=== PATIENT | female | born 1985 | race Caucasian/White ===

== ENCOUNTER 2017-11-27 20:20 | Emergency (ER) | payer BC, OTHER ==
--- NOTE | 2017-11-27 20:26 | PDOC ---
History of Present Illness - General History Source: Patient Exam Limitations: No Limitations - History of Present Illness Initial Comments: 11/27/17 20:43 The patient is a 32 year old female, with a significant past medical history of IBS, who presents to the emergency department with abdominal pain, nausea, and vomiting since this morning. The patient reports her abdominal pain is localized epigastrically and radiates to her left abdomen and left flank. Patient reports her pain is exacerbated with vomiting or with movement, and alleviated when lying on her right side in position. She reports associated nausea, bilious vomiting, diarrhea, dry heaving, diaphoresis, and chills. She denies any associated fever, rectal bleeding, cough, headache, or dizziness. Patient reports she has been unable to tolerate any solids or fluids p.o. She reports mild shortness of breath, but denies any chest pain, palpitations, or lower extremity edema. She denies any dysuria, hematuria, frequency, or urgency. She denies any history of kidney stones. She denies any recent travel or sickk contacts. PAST MEDICAL HISTORY: IBS PAST SURGICAL HISTORY: No significant history FAMILY HISTORY: No pertinent history SOCIAL HISTORY: Pt lives with family and is employed. Non smoker. No ETOH or recreational drug use. MEDICATIONS: reviewed ALLERGIES: As per nursing notes General: Yes chills. No fevers, no weakness, no weight loss HEENT: No change in vision. No sore throat,. No ear pain CardioVascular: No chest pain or shortness of breath Respiratory:No cough, or wheezing. Gastrointestinal: Yes abdominal pain, nausea, vomiting, diarrhea. No constipation. No rectal bleeding Genitourinary: Yes flank pain. No dysuria, hematuria, or frequency Musculoskeletal: No joint or muscle pain or swelling Neurologic: No headache, vertigo, dizziness or loss of consciousness Psychiatric: No depression Skin: No rashes or easy bruising Endocrine: Yes decreased appetite. No abnormal weight change Allergic: no skin or latex allergy All other systems reviewed and normal General: Well-nourished well-developed individual, Moderate distress HEENT: Throat: Dry mucous membranes. Normal, tonsils normal, no erythema or exudate Neck: Supple, no meningeal signs, no lymphadenopathy Eyes::Pupils equal reactive and round, extraocular motion intact Chest: Nontender to palpation Cardiac: S1-S2 normal, regular rate and rhythm, no murmurs rubs or gallops Respiratory: Lungs clear to auscultation bilateral Abdomen: Soft, nondistended, Mildly tender diffusely to deep palpation. Bowel sounds present and normal. No guarding or rebound. Extremities: Warm, dry, no cyanosis, clubbing, or edema Skin: No rashes Neuro: Alert and oriented x3, nonfocal exam, grossly intact, normal gait Psych: Normal mood and affect <Jeanne Beckham - Last Filed: 11/27/17 21:50> - General History Source: Patient Exam Limitations: No Limitations - History of Present Illness Initial Comments: Medical decision-making: This is a 32-year-old female who comes in complaining of nausea vomiting and diarrhea and abdominal pain. Patient on arrival is relatively uncomfortable. Patient also has a flank component to her pain. Will obtain labs including CBC, comp, urinalysis and urine test We'll follow with CT abdomen and pelvis as there is a flank component and to rule out renal colic Hydrate patient with 2 L of normal saline and give her antiemetics and pain medication Reevaluation at 21:30 Patient still is complaining of some nausea I will give her some Reglan as the Zofran does not seem to be working Reevaluation 20:30 Patient has now received 2 L of fluids, nausea has resolved with the Reglan patient looks hydrated feels much better and wants to go home. A reexamination of her abdomen her abdomen is now soft, nontender and with normal bowel sounds 11/27/17 22:42 Labs are pretty much unremarkable CBC does show a moderate amount of dehydration as well as a urine with 4+ ketones CT scan shows no renal stones however does show evidence of acute enteritis. Assessment and plan: This is a 32-year-old female comes in complaining of nausea vomiting diarrhea abdominal pain and cramping. Patient had a workup that was essentially negative for everything but a viral etiology. A prescription for Reglan was sent patient's pharmacy for antiemetic. Patient given vomiting discharge instructions including the Quiana diet patient discharged home with her parents <Nevin Guzman I - Last Filed: 11/27/17 22:53> - General Chief Complaint: Pain, Acute Stated Complaint: ABD PAIN/N/V/D Time Seen by Provider: 11/27/17 20:25 Past History <Jeanne Beckham - Last Filed: 11/27/17 21:50> - Past Medical History GI Disorders: Yes (IBS) - Immunization History Immunization Up to Date: Yes - Suicide/Smoking/Psychosocial Hx Smoking History: Unknown if ever smoked Have you smoked in the past 12 months: No Hx Alcohol Use: No Substance Use Type: None <Nevin Guzman I - Last Filed: 11/27/17 22:53> - Past Medical History Allergies/Adverse Reactions: Allergies Allergy/AdvReac Type Severity Reaction Status Date / Time Penicillins Allergy Verified 03/14/15 08:30 Home Medications: Ambulatory Orders Metoclopramide HCl [Reglan] 10 mg PO TID #12 tablet 11/27/17 *Physical Exam - Vital Signs Last Vital Signs Temp Pulse Resp BP Pulse Ox 97.7 F 80 18 144/79 100 11/27/17 20:26 11/27/17 20:26 11/27/17 20:26 11/27/17 20:26 11/27/17 20:26 <Jeanne Beckham - Last Filed: 11/27/17 21:50> ED Treatment Course - LABORATORY CBC & Chemistry Diagram: 11/27/17 20:51 11/27/17 20:51 <Jeanne Beckham - Last Filed: 11/27/17 21:50> - LABORATORY CBC & Chemistry Diagram: 11/27/17 20:51 11/27/17 20:51 <Nevin Guzman I - Last Filed: 11/27/17 22:53> *DC/Admit/Observation/Transfer - Attestations Scribe Attestion: 11/27/17 20:45 Documentation prepared by Jeanne Beckham, acting as medical delivery technician for Nevin Guzman MD. <Jeanne Beckham - Last Filed: 11/27/17 21:50> - Discharge Dispostion Admit: No <Nevin Guzman I - Last Filed: 11/27/17 22:53> Diagnosis at time of Disposition: Acute gastroenteritis - Discharge Dispostion Disposition: HOME Condition at time of disposition: Stable - Prescriptions Prescriptions: Metoclopramide HCl [Reglan] 10 mg PO TID #12 tablet - Referrals Referrals: Malissa Pena [Primary Care Provider] - - Patient Instructions Additional Instructions: Clear liquids only for the next 6 hours.. After that if you have had no further vomiting you may have bananas, rice, applesauce, or toast. If no further vomiting for another 8 hours you may have regular food. If you vomit again then nothing to eat or drink for 2 hours. Take a Reglan 1 tablet as often as every 6-8 hours. As needed for vomiting then start back with the clear liquids. Return to the emergency department immediately with ANY new, persistent or worsening symptoms. You MUST call and follow up with your doctor tomorrow if not better. Please make sure your doctor reviews the results of your emergency evaluation. - Post Discharge Activity
[2017-11-27 20:28] VITALS: BP 144/79; PULSE 80; TEMP 97.7; BMI 27.4
[2017-11-27] MEDS ORDERED: ONDANSETRON 4 MG/2 ML VIAL IVPB ONE (20:36)
[2017-11-27] MEDS ORDERED: SODIUM CHLORIDE 1,000 ML IV ONE (20:36)
[2017-11-27] MEDS ORDERED: KETOROLAC TROMETHAMINE 30 MG/1 ML VIAL IVPUSH ONE (20:36)
[2017-11-27] MEDS ORDERED: KETOROLAC TROMETHAMINE 30 MG/1 ML VIAL ONE (20:37)
[2017-11-27] MEDS ORDERED: ONDANSETRON 4 MG/2 ML VIAL ONE (20:38)
[2017-11-27 20:57] LABS: URINE BILIRUBIN 1+ (NEGATIVE); URINE GLUCOSE (UA) Negative (NEGATIVE); URINE KETONE 4+ (NEGATIVE); URINE LEUK ESTERASE Negative (NEGATIVE); URINE NITRITE Negative (NEGATIVE); URINE UROBILINOGEN 0.2 (0.2-1.0)
[2017-11-27 20:58] LABS: URINE APPEARANCE HAZY; URINE BLOOD Trace-intact (NEGATIVE); URINE COLOR YELLOW; URINE PROTEIN 1+ (NEGATIVE)
[2017-11-27 21:12] LABS: BASO % 0.9 % (0-2.0); EOS % 0.9 % (0-4.5); MCH 29.6 pg (25.7-33.7); MCHC 33.5 g/dl (32.0-36.0); MEAN CELL VOLUME 88.3 fl (80-96); MEAN PLT VOLUME 8.9 fl (7.5-11.1); NEUT % 89.9 % (42.8-82.8); PLATELET COUNT 316 K/MM3 (134-434); WHITE BLOOD COUNT 9.6 K/mm3 (4.0-10.8)
[2017-11-27 21:19] LABS: URINE BACTERIA FEW /hpf (NEGATIVE)
[2017-11-27 21:25] LABS: ALBUMIN 4.4 g/dl (3.5-5.0); ALK PHOS 44 U/L (32-92); ANION GAP 11 (8-16); BILIRUBIN,TOTAL 1.2 mg/dl (0.2-1.0); CO2 24 mmol/L (22-28); CREATININE 0.6 mg/dl (0.6-1.3); GLUCOSE,RANDOM 94 mg/dl (74-106); SGOT/AST 29 U/L (10-42); SGPT/ALT 26 U/L (10-40)
[2017-11-27] MEDS ORDERED: morphine CARPU-JECT 4 MG/1 ML DISP.SYRIN IVPUSH ONE (21:29)
[2017-11-27] MEDS ORDERED: METOCLOPRAMIDE HCL INJECTION 10 MG/2 ML VIAL IVPUSH ONE (21:29)
[2017-11-27] MEDS ORDERED: morphine SULFATE 4 MG/ML VIAL ONE (21:31)
[2017-11-27] MEDS ORDERED: HYOSCYAMINE SULFATE 0.125 MG *ODT PO ONE (21:36)
[2017-11-27] MEDS ORDERED: SULFAMETHOXAZOLE/TRIMETHOPRIM 800MG/160MG D.S. TABLET PO ONE (21:39)
[2017-11-27] MEDS ORDERED: HYOSCYAMINE SULFATE 0.125 MG *ODT ONE (21:43)
== END 2017-11-27 22:56 | disposition home or self-care (01) ==
LOC: FER 20:20
PROC: 3E033GC Introduction of Other Therapeutic Substance into Peripheral Vein, Percutaneous Approach (ICD-10-PCS; principal; 2017-11-27)
PROC: 3E0333Z Introduction of Anti-inflammatory into Peripheral Vein, Percutaneous Approach (ICD-10-PCS; 2017-11-27)
PROC: 3E033NZ Introduction of Analgesics, Hypnotics, Sedatives into Peripheral Vein, Percutaneous Approach (ICD-10-PCS; 2017-11-27)
PROC: 3E0337Z Introduction of Electrolytic and Water Balance Substance into Peripheral Vein, Percutaneous Approach (ICD-10-PCS; 2017-11-27)
DX: R11.2 Nausea with vomiting, unspecified (principal); K52.9 Noninfective gastroenteritis and colitis, unspecified
CPT/HCPCS: 36415; 74176-TC; 80053; 81003; 81015; 83690; 84703; 85025; 87086; 99283-25

== ENCOUNTER 2018-04-08 20:29 | Emergency (ER) | payer BC, OTHER ==
--- NOTE | 2018-04-08 20:42 | PDOC ---
History of Present Illness - General History Source: Patient Exam Limitations: No Limitations - History of Present Illness Initial Comments: 04/08/18 21:15 The patient is a 32 year old female with a significant PMH of IBS who presents to the emergency department with chest pain for 5 days. The patient reports that she went to Urgent care earlier today where she was diagnosed positive for the flu. She reports that this is her second episode of the flu this season. The patient states that she began to experience her chest pain after a long run 5 days ago. The patient states that she has experienced associated shortness of breath, fever and productive cough. She reports that her chest pain is worsened with her cough. The patient denies any headache or dizziness. She denies any chills, nausea, vomiting, diarrhea or constipation. She denies any urinary symptoms. The patient denies any other complaints PAST MEDICAL HISTORY: IBS PAST SURGICAL HISTORY: no significant history FAMILY HISTORY: no pertinent history SOCIAL HISTORY: Pt lives with family and is employed. MEDICATIONS: reviewed ALLERGIES: As per nursing notes General:(+) fever. No chills, no weakness, no weight loss HEENT: No change in vision. No sore throat,. No ear pain CardioVascular: (+) chest pain with associated shortness of breath Respiratory:(+) cough. No wheezing. Gastrointestinal: no nausea, vomiting, diarrhea or constipation, No rectal bleeding Genitourinary: No dysuria, hematuria, or frequency Musculoskeletal: No joint or muscle pain or swelling Neurologic: No headache, vertigo, dizziness or loss of consciousness Psychiatric: nor depression Skin: No rashes or easy bruising Endocrine: no increased thirst or abnormal weight change Allergic: no skin or latex allergy All other systems reviewed and normal General: Well-nourished well-developed individual, no acute distress HEENT: Throat: Normal, tonsils normal, no erythema or exudate Neck: Supple, no meningeal signs, no lymphadenopathy Eyes::Pupils equal reactive and round, extraocular motion intact Chest: Nontender to palpation Cardiac: S1-S2 normal, regular rate and rhythm, no murmurs rubs or gallops Respiratory: Lungs clear to auscultation bilateral Extremities: Warm, dry, no cyanosis, clubbing, or edema Skin: No rashes Neuro: Alert and oriented x3, nonfocal exam, grossly intact, normal gait Psych: Normal mood and affect <Saundra Lazcano - Last Filed: 04/08/18 21:15> - General History Source: Patient Exam Limitations: No Limitations - History of Present Illness Initial Comments: 04/08/18 20:47 A portion of this note was documented by scribe services under my direction. I have reviewed the details of the note, within reason, and agree with the documentation. The case summary and management plan written by me. Assessment and plan: This is a 32-year-old female with cough and congestion secondary to influenza. Patient was at an urgent care center today had an influenza test done that was positive. Patient is complaining of pleuritic type chest pain and coughing up thick greenish yellow phlegm. Patient says pain is associated with some mild shortness of breath. Will obtain chest x-ray and give patient azithromycin there is any evidence of bronchitis or pneumonia. 04/08/18 21:25 Chest x-ray shows bronchitis as reviewed by me We'll start patient on a Z-Stevenson Patient discharged home <Nevin Guzman I - Last Filed: 04/08/18 21:29> - General Chief Complaint: Chest Pain Stated Complaint: CHEST PAIN Time Seen by Provider: 04/08/18 20:35 Past History <Saundra Lazcano - Last Filed: 04/08/18 21:15> - Past Medical History COPD: No GI Disorders: Yes (IBS) - Immunization History Immunization Up to Date: Yes - Suicide/Smoking/Psychosocial Hx Smoking History: Unknown if ever smoked Have you smoked in the past 12 months: No Number of Cigarettes Smoked Daily: 0 Information on smoking cessation initiated: No Hx Alcohol Use: No Drug/Substance Use Hx: No Substance Use Type: None <Nevin Guzman I - Last Filed: 04/08/18 21:29> - Past Medical History Allergies/Adverse Reactions: Allergies Allergy/AdvReac Type Severity Reaction Status Date / Time Penicillins Allergy Verified 03/14/15 08:30 Home Medications: Ambulatory Orders Metoclopramide HCl [Reglan] 10 mg PO TID #12 tablet 11/27/17 Azithromycin [Zithromax 250mg Tablets -] 250 mg PO DAILY #4 tab 04/08/18 Benzonatate [Tessalon Pearls -] 100 mg PO TID #21 capsule 04/08/18 *Physical Exam - Vital Signs Last Vital Signs Temp Pulse Resp BP Pulse Ox 98.3 F 70 14 119/90 100 04/08/18 20:32 04/08/18 20:32 04/08/18 20:32 04/08/18 20:32 04/08/18 20:32 <Saundra Lazcano - Last Filed: 04/08/18 21:15> - Vital Signs Last Vital Signs Temp Pulse Resp BP Pulse Ox 98.3 F 70 14 119/90 100 04/08/18 20:32 04/08/18 20:32 04/08/18 20:32 04/08/18 20:32 04/08/18 20:32 <Nevin Guzman I - Last Filed: 04/08/18 21:29> *DC/Admit/Observation/Transfer - Attestations Scribe Attestion: 04/08/18 21:16 Documentation prepared by Saundra Lazcano, acting as medical research scientist for Nevin Guzman MD. <Saundra Lazcano - Last Filed: 04/08/18 21:15> - Discharge Dispostion Decision to Admit order: No <Nevin Guzman I - Last Filed: 04/08/18 21:29> Diagnosis at time of Disposition: Bronchitis - Discharge Dispostion Disposition: HOME Condition at time of disposition: Good - Patient Instructions Printed Discharge Instructions: Acute Bronchitis Additional Instructions: Your chest x-ray shows bronchitis. I gave you a dose of azithromycin here in the emergency room and send a prescription to your pharmacy will need to take the next dose tomorrow evening. He will take a total of 4 more doses. I've also send a prescription to her pharmacy for Jose Luis Perles for the cough that plus the antibiotics should help. For the discomfort in your chest take Tylenol or Motrin. Return to the emergency department immediately with ANY new, persistent or worsening symptoms. Continue any medications as previously prescribed by your physician. You should follow up with your primary doctor as soon as possible regarding today's emergency department visit. . Please make sure your doctor reviews the results of your emergency evaluation. Thank you for coming to the Emergency Department today for your care. It was a pleasure to see you today. Please note that your evaluation is INCOMPLETE until you follow-up with your doctor.
[2018-04-08 20:43] VITALS: BP 119/90; PULSE 70; TEMP 98.3; BMI 28.3
[2018-04-08] MEDS ORDERED: AZITHROMYCIN 250 MG TABLET PO ONE (21:28)
[2018-04-08] MEDS ORDERED: AZITHROMYCIN 250 MG TABLET ONE (21:36)
== END 2018-04-08 21:38 | disposition home or self-care (01) ==
LOC: FER 20:29
DX: J20.9 Acute bronchitis, unspecified (principal); K58.9 Irritable bowel syndrome, unspecified; Z88.0 Allergy status to penicillin
CPT/HCPCS: 71046-TC-FY; 99283-25

== ENCOUNTER 2019-02-05 21:30 | Emergency (ER) | payer OTHER ==
[2019-02-06 00:34] VITALS: BP 147/93; PULSE 68; TEMP 98.2; BMI 29.9
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
== END 2019-02-05 22:20 | disposition home or self-care (01) ==
LOC: FER 21:30
DX: T23.002A Burn of unspecified degree of left hand, unspecified site, initial encounter (principal); X08.8XXA Exposure to other specified smoke, fire and flames, initial encounter; Y93.9 Activity, unspecified; Y92.9 Unspecified place or not applicable
CPT/HCPCS: 99282-25

== ENCOUNTER 2019-08-27 04:23 | Emergency (ER) | payer SELFPAY ==
[2019-08-27 04:37] VITALS: BP 132/84; PULSE 73; TEMP 98.2; BMI 29.9
[2019-08-27] MEDS ORDERED: ALBUTEROL SO4 2.5/IPRATROPIUM 0.5 INH SOL 3 ML VIAL.NEB. NEB ONE ×2 (04:43)
--- NOTE | 2019-08-27 04:45 | PDOC ---
History of Present Illness - General Chief Complaint: Respiratory Stated Complaint: COUGH/FEVER Time Seen by Provider: 08/27/19 04:39 History Source: Patient Exam Limitations: No Limitations - History of Present Illness Initial Comments: 08/27/19 04:43 This is a 33-year-old female who comes in complaining of a cough and fever 1 week. Patient said the fever is been intermittent. Patient said the cough is getting worse. Patient said she is having difficulty laying down and sleeping because of the cough. Patient otherwise is healthy and denies any other medical problems. Allergies: as per nursing notes Past Medical History: none Social history: Lives with family. No smoking. No alcohol. No illicit drugs. Surgical history: None General: No fevers or chills, no weakness, no weight loss HEENT: No change in vision. No sore throat,. No ear pain CardioVascular: no chest discomfort. No shortness of breath Respiratory:+ cough, no wheezing. Gastrointestinal: no nausea, vomiting, diarrhea or constipation, No rectal bleeding Genitourinary: No dysuria, hematuria, or frequency Musculoskeletal: No joint or muscle pain or swelling Neurologic: No headache, vertigo, dizziness or loss of consciousness Psychiatric: nor depression Skin: No rashes or easy bruising Endocrine: no increased thirst or abnormal weight change Allergic: no skin or latex allergy All other systems reviewed and normal Exam: General: Well-nourished well-developed individual, no acute distress HEENT: Throat: Normal, tonsils normal, no erythema or exudate Neck: Supple, no meningeal signs, no lymphadenopathy Eyes::Pupils equal reactive and round, extraocular motion intact Chest: Nontender to palpation Cardiac: S1-S2 normal, regular rate and rhythm, no murmurs rubs or gallops Respiratory: Lungs clear to auscultation bilateral Abdomen: Soft, nondistended, normal bowel sounds, there is no tenderness on palpation diffusely Extremities: Warm, dry, no cyanosis, clubbing, or edema Skin: No rashes Neuro: Alert and oriented x3, CN II - XII intact, nonfocal exam with normal strength, normal sensation, normal reflexes, normal gait, Psych: Normal mood and affect 08/27/19 05:16 Past History - Past Medical History Allergies/Adverse Reactions: Allergies Allergy/AdvReac Type Severity Reaction Status Date / Time Penicillins Allergy Verified 04/14/15 08:30 Home Medications: Ambulatory Orders Azithromycin 250 mg PO DAILY #4 tablet 08/27/19 COPD: No GI Disorders: Yes (IBS) - Immunization History Immunization Up to Date: Yes - Psycho Social/Smoking Cessation Hx Smoking History: Never smoked Have you smoked in the past 12 months: No Number of Cigarettes Smoked Daily: 0 Hx Alcohol Use: No Drug/Substance Use Hx: No Substance Use Type: None *Physical Exam - Vital Signs Last Vital Signs Temp Pulse Resp BP Pulse Ox 98.2 F 73 18 132/84 99 08/27/19 04:32 08/27/19 04:32 08/27/19 04:32 08/27/19 04:32 08/27/19 04:32 Discharge - Discharge Information Problems reviewed: Yes Clinical Impression/Diagnosis: Pneumonia Condition: Stable Disposition: HOME - Admission No - Follow up/Referral Referrals: Malissa Pena [Primary Care Provider] - - Patient Discharge Instructions Additional Instructions: The chest x-ray shows you have some pneumonia. I started you on antibiotics however you need to take the antibiotics once a day for the next 4 days. Return to the emergency department immediately with ANY new, persistent or worsening symptoms. Continue any medications as previously prescribed by your physician. You should follow up with your primary doctor as soon as possible regarding today's emergency department visit. . Please make sure your doctor reviews the results of your emergency evaluation. Thank you for coming to the Emergency Department today for your care. It was a pleasure to see you today. Please note that your evaluation is INCOMPLETE until you follow-up with your doctor. - Post Discharge Activity
[2019-08-27] MEDS ORDERED: AZITHROMYCIN 500 MG TABLET PO ONE (05:17)
[2019-08-27] MEDS ORDERED: AZITHROMYCIN 250 MG TABLET ONE (05:19)
== END 2019-08-27 05:23 | disposition home or self-care (01) ==
LOC: FER 04:23
PROC: 3E0F7GC Introduction of Other Therapeutic Substance into Respiratory Tract, Via Natural or Artificial Opening (ICD-10-PCS; principal; 2019-08-27)
DX: J18.9 Pneumonia, unspecified organism (principal); Z88.0 Allergy status to penicillin; K58.9 Irritable bowel syndrome, unspecified
CPT/HCPCS: 71046-TC-FY; 99281-25

== ENCOUNTER 2022-12-02 17:25 | Emergency (ER) | payer OTHER ==
[2022-12-02 17:34] VITALS: BP 111/84; PULSE 75; RESP 20; TEMP 98; BMI 24.1
[2022-12-02] MEDS ORDERED: FAMOTIDINE 20 MG TABLET PO ONE (17:47)
[2022-12-02] MEDS ORDERED: MAG HYDROX/AL HYDROX/SIMETH 30 ML UNIT-DOSE CUP PO ONE (17:47)
[2022-12-02] MEDS ORDERED: MAG HYDROX/AL HYDROX/SIMETH 30 ML UNIT-DOSE CUP ONE (17:49)
[2022-12-02] MEDS ORDERED: FAMOTIDINE 20 MG TABLET ONE (17:49)
[2022-12-02 18:20] LABS: HEMATOCRIT 40.3 % (32.4-45.2); HEMOGLOBIN 14.1 G/dL (10.7-15.3); MCH 30.2 pg (25.7-33.7); MCHC 34.9 g/dl (32.0-36.0); MEAN CELL VOLUME 86.4 fl (80-96); MEAN PLT VOLUME 7.6 fl (7.5-11.1); PLATELET COUNT 372.7 10^3/uL (134-434); RBC 4.66 10^6/uL (3.60-5.2); RDW 13.4 % (11.6-15.6); WHITE BLOOD COUNT 4.8 10^3/uL (4.0-10.8)
[2022-12-02 18:36] LABS: ALBUMIN 4.2 g/dl (3.4-5.0); BILIRUBIN,TOTAL 0.8 mg/dl (0.2-1); CALCIUM 9.4 mg/dl (8.5-10); TOT PROT 7.7 g/dl (6.4-8.2)
[2022-12-02] MEDS ORDERED: ACETAMINOPHEN INJECTION 100 ML IVPB ONE (18:45)
[2022-12-02 18:57] LABS: PLATELET ESTIMATE ADEQUATE
[2022-12-02] MEDS ORDERED: ACETAMINOPHEN 1000 MG/100 ML BAG IVPB ONE (19:02)
[2022-12-02] MEDS ORDERED: CYCLOBENZAPRINE HCL 10 MG TABLET (FP) PO ONE (20:05)
[2022-12-02] MEDS ORDERED: CYCLOBENZAPRINE HCL 5 MG TABLET ONE (20:15)
== END 2022-12-02 21:07 | disposition home or self-care (01) ==
LOC: FER 17:25
PROC: 3E033GC Introduction of Other Therapeutic Substance into Peripheral Vein, Percutaneous Approach (ICD-10-PCS; principal; 2022-12-02)
DX: R07.89 Other chest pain (principal)
CPT/HCPCS: 36415; 71046-TC-FY; 80053; 83690; 84484; 84703; 85027; 93005; 99285-25

== ENCOUNTER 2023-10-06 07:16 | Emergency (ER) | payer OTHER ==
[2023-10-06 07:31] VITALS: BP 115/79; PULSE 87; RESP 18; TEMP 97.7; BMI 23.2
[2023-10-06] MEDS ORDERED: SODIUM CHLORIDE 0.9% 500 ML INFUS.BAG IV ONE ×2 (08:13→10:47)
[2023-10-06] MEDS ORDERED: METOCLOPRAMIDE HCL INJECTION 10 MG/2 ML VIAL IVPB ONE (08:14)
[2023-10-06] MEDS ORDERED: FAMOTIDINE 20 MG/50 ML IVPB 20 MG/50 ML MG IVPB ONE (08:14)
[2023-10-06] MEDS ORDERED: ACETAMINOPHEN 1000 MG/100 ML BAG IVPB ONE (08:14)
[2023-10-06] MEDS ORDERED: ACETAMINOPHEN INJECTION 100 ML IVPB ONE (08:42)
[2023-10-06] MEDS ORDERED: METOCLOPRAMIDE HCL INJECTION 10 MG/2 ML VIAL ONE (08:42)
[2023-10-06 09:10] LABS: HEMATOCRIT 43.2 % (32.4-45.2); HEMOGLOBIN 14.9 GM/dL (10.7-15.3); MCH 29.9 pg (25.7-33.7); MCHC 34.5 g/dl (32.0-36.0); MEAN CELL VOLUME 86.8 fl (80-96); MEAN PLT VOLUME 7.5 fl (7.5-11.1); PLATELET COUNT 311 10^3/uL (134-434); RBC 4.98 M/mm3 (3.60-5.2); RDW 12.8 % (11.6-15.6); WHITE BLOOD COUNT 5.7 K/mm3 (4.0-10.0)
[2023-10-06 09:15] LABS: POTASSIUM 3.5 mmol/L (3.5-5.1)
[2023-10-06 09:18] LABS: BLOOD UREA NITROGEN 24.2 mg/dL (7-18); CALCIUM 8.6 mg/dL (8.5-10.1); MAGNESIUM 1.9 mg/dL (1.8-2.4)
[2023-10-06 09:21] LABS: CREATININE 0.8 mg/dL (0.55-1.3)
[2023-10-06 09:23] LABS: BILIRUBIN,TOTAL 1.3 mg/dL (0.2-1); TOT PROT 7.3 g/dl (6.4-8.2)
[2023-10-06 09:42] LABS: ANISOCYTOSIS 0; HELMET CELLS 0; HOWELL-JOLLY BODIES 0; MACROCYTOSIS 0; OVALOCYTE 0; ROULEAU 0; SICKELED CELLS 0; TARGET CELLS 0; TEAR DROP CELLS 0; TOXIC GRANULATION 0
[2023-10-06 10:44] LABS: EPI CELLS >36 /uL (0-25.1); HYALINE CASTS 1 /uL (0-3.1); PH,URINE 7.5 (5.0-8.0); URINE APPEARANCE CLOUDY; URINE BACTERIA >9,000 /uL (0-1359); URINE BILIRUBIN NEGATIVE (NEGATIVE); URINE COLOR DK YELLOW; URINE GLUCOSE (UA) NEGATIVE (NEGATIVE); URINE KETONE 4+ (NEGATIVE); URINE LEUK ESTERASE TRACE (NEGATIVE); URINE NITRITE POSITIVE (NEGATIVE); URINE PROTEIN 1+ (NEGATIVE); URINE RBC 14 /uL (0-23.9); URINE WBC 22 /uL (0-25.8)
[2023-10-06 10:45] LABS: HCG,QUALITATIVE URINE Negative
[2023-10-06] MEDS ORDERED: SODIUM CHLORIDE 0.9% 1000 ML INFUS.BAG IV ONE (10:45)
[2023-10-06 12:21] LABS: EPI CELLS 62 /uL (0-25.1); HYALINE CASTS 2 /uL (0-3.1); URINE APPEARANCE CLEAR; URINE BACTERIA 14379 /uL (0-1359); URINE BILIRUBIN NEGATIVE (NEGATIVE); URINE COLOR DK YELLOW; URINE GLUCOSE (UA) NEGATIVE (NEGATIVE); URINE KETONE 3+ (NEGATIVE); URINE LEUK ESTERASE NEGATIVE (NEGATIVE); URINE NITRITE POSITIVE (NEGATIVE); URINE PROTEIN TRACE (NEGATIVE); URINE RBC 13 /uL (0-23.9); URINE WBC 24 /uL (0-25.8)
[2023-10-06] MEDS ORDERED: CEPHALEXIN MONOHYDRATE 500 MG CAPSULE (UD) PO ONE (13:02)
[2023-10-06] MEDS ORDERED: CEPHALEXIN MONOHYDRATE 500 MG CAPSULE (UD) ONE (13:03)
== END 2023-10-06 13:29 | disposition home or self-care (01) ==
LOC: JER 07:16
PROC: 3E033NZ Introduction of Analgesics, Hypnotics, Sedatives into Peripheral Vein, Percutaneous Approach (ICD-10-PCS; principal; 2023-10-06)
PROC: 3E033GC Introduction of Other Therapeutic Substance into Peripheral Vein, Percutaneous Approach (ICD-10-PCS; 2023-10-06)
DX: R11.10 Vomiting, unspecified (principal); R10.84 Generalized abdominal pain; R19.7 Diarrhea, unspecified; R53.83 Other fatigue; R51.9 Headache, unspecified; R61 Generalized hyperhidrosis; K52.9 Noninfective gastroenteritis and colitis, unspecified; N39.0 Urinary tract infection, site not specified; Z20.822 Contact with and (suspected) exposure to COVID-19
CPT/HCPCS: 0241U-QW; 36415; 71046-TC-FY; 80053; 81003; 83690; 83735; 84703; 85025; 87086; 87186; 93005; 93010; 99285-25

== ENCOUNTER 2024-08-03 17:22 | Emergency (ER) | payer OTHER ==
[2024-08-03 17:44] VITALS: BP 125/73; PULSE 78; RESP 16; TEMP 97.5; BMI 23.3
[2024-08-03 19:23] LABS: BILIRUBIN,TOTAL 0.5 mg/dl (0.2-1); CALCIUM 9.2 mg/dl (8.5-10.1); CREATININE 1.1 mg/dl (0.6-1.3); POTASSIUM 3.1 mmol/L (3.5-5.1); TOT PROT 6.4 g/dl (6.4-8.2)
[2024-08-03 19:25] LABS: HEMATOCRIT 41.6 % (32.4-45.2); HEMOGLOBIN 13.2 G/dL (10.7-15.3); MCH 27.9 pg (25.7-33.7); MCHC 31.6 g/dl (32.0-36.0); MEAN CELL VOLUME 88.4 fl (80-96); MEAN PLT VOLUME 7.6 fl (7.5-11.1); PLATELET COUNT 321.4 10^3/uL (134-434); RBC 4.71 10^6/uL (3.60-5.2); RDW 13.5 % (11.6-15.6); WHITE BLOOD COUNT 4.1 10^3/uL (4.0-10.8)
[2024-08-03 19:38] LABS: PLATELET ESTIMATE ADEQUATE
[2024-08-03] MEDS ORDERED: POTASSIUM CHLORIDE TABS 20 MEQ TABLET.ER (FP) PO ONE (20:38)
[2024-08-03] MEDS: POTASSIUM CHLORIDE TABS 20 MEQ TABLET.ER (FP) PO ONE (20:40)
== END 2024-08-03 20:42 | disposition home or self-care (01) ==
LOC: FER 17:22
DX: R10.11 Right upper quadrant pain (principal); R07.82 Intercostal pain
CPT/HCPCS: 36415; 71046-TC-FY; 76705-TC; 80053; 83690; 84703; 85027; 99285-25